=== PATIENT | male | born 1985 | race Caucasian/White ===

== ENCOUNTER 2017-02-05 02:19 | Emergency (ER) | payer SELFPAY ==
--- NOTE | 2017-02-05 03:08 | ED ---
Laceration/Wound HPI - HPI Summary HPI Summary: 32M presents with left forearm laceration today. he cut it at work on piece of metal. no foreign body. bleeding is controlled. no numbness or tingling. has full ROM. tetanus was 3 years ago. minimal pain. is right handed. - History of Current Complaint Stated Complaint: LACERATION Time Seen by Provider: 02/05/17 02:40 Pain Intensity: 0 - Allergy/Home Medications Allergies/Adverse Reactions: Allergies Allergy/AdvReac Type Severity Reaction Status Date / Time No Known Allergies Allergy Verified 02/28/16 17:04 PMH/Surg Hx/FS Hx/Imm Hx Endocrine/Hematology History: Denies: Hx Diabetes, Hx Thyroid Disease Cardiovascular History: Denies: Hx Hypertension Respiratory History: Denies: Hx Asthma, Hx Chronic Obstructive Pulmonary Disease (COPD) GI History: Denies: Hx Ulcer Infectious Disease History: No Infectious Disease History: Denies: Hx Clostridium Difficile, Hx Hepatitis, Hx Human Immunodeficiency Virus (HIV), Hx of Known/Suspected MRSA, Hx Shingles, Hx Tuberculosis, Hx Known/ Suspected VRE, Hx Known/Suspected VRSA, History Other Infectious Disease, Traveled Outside the in Last 30 Days - Family History Known Family History: Positive: Unknown Family History: NON CONTRIBUTORY - Social History Alcohol Use: Occasionally Substance Use Type: Reports: None, Cocaine Substance Use Comment - Amount & Last Used: not currently Smoking Status (MU): Heavy Every Day Tobacco Smoker Type: Cigarettes Amount Used/How Often: 3/4 ppd Review of Systems Negative: Fever Negative: Chest Pain Negative: Shortness Of Breath Positive: Other - laceration left forearm All Other Systems Reviewed And Are Negative: Yes Physical Exam Triage Information Reviewed: Yes Vital Signs On Initial Exam: Initial Vitals Temp Pulse Resp BP Pulse Ox 96.3 F 67 18 132/79 98 02/05/17 02:27 02/05/17 02:27 02/05/17 02:27 02/05/17 02:27 02/05/17 02:27 Vital Signs Reviewed: Yes Appearance: Positive: Well-Appearing Skin: Positive: Warm, Dry, Other - 2cm by 1/2cm of left forearm Head/Face: Positive: Normal Head/Face Inspection Eyes: Positive: Normal, Conjunctiva Clear Respiratory/Lung Sounds: Positive: Clear to Auscultation, Breath Sounds Present Cardiovascular: Positive: Normal, RRR Musculoskeletal: Positive: Strength/ROM Intact - left arm, Other - good pulses Neurological: Positive: Normal Psychiatric: Positive: Normal Procedures - Laceration/Wound Repair 1 Location: Other - left foream Description: Linear Anesthesia: Local, 1.0%, Epi Length, Depth and Shape: 2cm by 1/2cm Irrigated w/ Saline (ccs): 200 Closure: [place] #__ - 3 Diagnostics - Vital Signs Vital Signs Temp Pulse Resp BP Pulse Ox 02/05/17 02:27 96.3 F 67 18 132/79 98 - Laboratory Lab Statement: Any lab studies that have been ordered have been reviewed, and results considered in the medical decision making process. Laceration Repair Course/Dx - Course Course Of Treatment: 32M presents with left forearm laceration today. he cut it at work on piece of metal. no foreign body. bleeding is controlled. no numbness or tingling. has full ROM. tetanus was 3 years ago. minimal pain. on exam has 2cm by 1/2cm laceration of left forearm. cleaned area and placed 3 myra. patient understand and agrees with plan. - Differential Dx Differental Diagnoses: Abrasion, Avulsion, Laceration - Clinical Impression Provider Diagnoses: Laceration of left forearm Discharge - Discharge Plan Condition: Good Disposition: HOME Patient Education Materials: St[facility] (ED) Referrals: No Primary Care Phys,NOPCP [Primary Care Provider] - Additional Instructions: Have myra removed in 10 days at urgent care, ED, or primary Keep clean Take tyenlol or ibuprofen for pain every 6 hours Return to ED if develop any signs of infection or any new or worsening symptoms
[2017-02-05 03:34] VITALS: BP 127/72
== END 2017-02-05 03:32 | disposition home or self-care (01) ==
LOC: ED 02:19
DX: S51.812A Laceration without foreign body of left forearm, initial encounter (principal); W26.9XXA Contact with unspecified sharp object(s), initial encounter; Y93.9 Activity, unspecified; Y92.9 Unspecified place or not applicable; F17.210 Nicotine dependence, cigarettes, uncomplicated
CPT/HCPCS: 12001; 99282

== ENCOUNTER 2017-03-20 11:20 | Emergency (ER) | payer OTHER ==
[2017-03-20 11:35] VITALS: BP 133/81
--- NOTE | 2017-03-20 11:39 | UC ---
Throat Pain/Nasal Damion HPI - HPI Summary HPI Summary: 32 y/o male presents to the urgent care c/o Rt side sore throat with a swollen lymph node that is painful to touch for the past week. Pain with swallowing is 4 /10. He had a low grade fever yesterday. He has taken Tylenol to alleviate symptoms. Pt denies cough, nasal congestion, SOB, chest pain, N/V/D - History of Current Complaint Chief Complaint: UCRespiratory Stated Complaint: SORE THROAT Time Seen by Provider: 03/20/17 11:37 Onset/Duration: Gradual Onset, Lasting Weeks - 1 week, Still Present, Worse Since - yesterday Severity: Moderate Pain Intensity: 4 Pain Scale Used: 0-10 Numeric Cough: None Associated Signs & Symptoms: Positive: Dysphagia, Fever - low grade fever - Epiglottits Risk Factors Epiglottis Risk Factors: Negative - Allergies/Home Medications Allergies/Adverse Reactions: Allergies Allergy/AdvReac Type Severity Reaction Status Date / Time No Known Allergies Allergy Verified 03/20/17 11:34 PMH/Surg Hx/FS Hx/Imm Hx Previously Healthy: Yes - Pt denies PMHX - Surgical History Surgical History: None - Family History Family History: DVT - Social History Occupation: Employed Full-time Lives: With Family Alcohol Use: Rare Substance Use Type: None Substance Use Comment - Amount & Last Used: not currently Smoking Status (MU): Heavy Every Day Tobacco Smoker Type: Cigarettes Amount Used/How Often: 3/4 ppd Length of Time of Smoking/Using Tobacco: since age 19 Have You Smoked in the Last Year: Yes - Immunization History Most Recent Influenza Vaccination: no Review of Systems Constitutional: Fever - low grade fever at home Skin: Negative Eyes: Negative ENT: Sore Throat - RT side swollen and painful lymph node, Ear Ache - RT side ear Respiratory: Negative Cardiovascular: Negative Gastrointestinal: Negative Genitourinary: Negative Motor: Negative Neurovascular: Negative Musculoskeletal: Negative Neurological: Negative Psychological: Negative Is Patient Immunocompromised?: No All Other Systems Reviewed And Are Negative: Yes Physical Exam Triage Information Reviewed: Yes Vital Signs: Initial Vital Signs Temp 96.9 F 03/20/17 11:29 Pulse 79 03/20/17 11:29 Resp 14 03/20/17 11:29 BP 133/81 03/20/17 11:29 Pulse Ox 100 03/20/17 11:29 - Additional Comments VITAL SIGNS: Reviewed. GENERAL: Patient is a well developed and nourished male who is sitting comfortable in the examining table. Patient is not in any acute respiratory distress. HEAD AND FACE: No signs of trauma. No ecchymosis, hematomas or skull depressions. No sinus tenderness. EYES: PERRLA, EOMI x 2, No injected conjunctiva, no nystagmus. No photophobia. EARS: Hearing grossly intact. Ear canals and tympanic membranes are within normal limits. MOUTH: Positive pharynx with erythema, RT side with moderated purulent exudates with blood streaks, mild palatal petechiae. B/L tonsillar enlargement, RT side with purulent moderated exudate. Uvula in midline. NECK: Supple, trachea is midline, Positive anterior cervical lymphadenopathy, no JVD, no carotid bruit, no c-spine tenderness, neck with full ROM. No meningeal signs, no Kernig's or brudzinskis signs. CHEST: Symmetric, no tenderness at palpation LUNGS: Clear to auscultation bilaterally. No wheezing or crackles. CVS: Regular rate and rhythm, S1 and S2 present, no murmurs or gallops appreciated. ABDOMEN: Soft, non-tender. No signs of distention. No rebound no guarding, and no masses palpated. Bowel sounds are normal. EXTREMITIES: FROM in all major joints, no edema, no cyanosis or clubbing. NEURO: Alert and oriented x 3. No acute neurological deficits. Speech is normal and follows commands. SKIN: Dry and warm Throat Pain/Nasal Course/Dx - Course Course Of Treatment: 32 y/o male presents to the urgent care c/o Rt side sore throat with a swollen lymph node that is painful to touch for the past week. Pain with swallowing is 4/10. He had a low grade fever yesterday. He has taken Tylenol to alleviate symptoms. Pt denies cough, nasal congestion, SOB, chest pain, N/V/D. Hx obtained. Rapid strep ordered: result: negative. However first trial was indeterminate. Swab will be sent for throat culture to r/o any other bacteria since exudate is purulent. Pt will be notified of any result for further treatment or stop antibiotic . Dx acute pharyngitis. Rx Amoxicillin PO and Ibuprofen PO for pain and swelling. PT Advised on hand washing to avoid spreading. Also advised to rest, eat well and avoid strenuous exercise. If symptoms do not improve or worsen advised to return to the urgent care or f/u with her PCP for further evaluation and treatment. PT understood and agreed - Differential Dx/Diagnosis Differential Diagnosis/HQI/PQRI: Laryngitis, Mononucleosis, Otitis Media, Peritonsillar Abscess, Pharyngitis, Sinusitis, Tonsillitis, URI Provider Diagnoses: 1- Acute pharyngitis Discharge - Discharge Plan Condition: Stable Disposition: HOME Prescriptions: Amoxicillin PO (*) [Amoxicillin 875 MG (*)] 875 mg PO BID #20 tab Ibuprofen TAB* [Motrin TAB* 800 MG] 800 mg PO Q6H PRN #20 tab PRN Reason: Pain Patient Education Materials: Pharyngitis (ED) Referrals: [facility] [place] [facility] [place]] - If Needed Additional Instructions: 1- Please take the full course of the antibiotic to avoid resistance. 2-Please take ibuprofen PO q6-8hrs prn as instructed after meals to alleviate pain and swelling. Increase fluid intake, eat well, rest and avoid strenuous exercise 3-If symptoms do not improve or worsen please return to the urgent care or f/u with your PCP for further evaluation and treatment. 4- Swab was sent for culture to r/o any other bacteria. You will be notified with the result if you need further treatment.
== END 2017-03-20 12:16 | disposition home or self-care (01) ==
LOC: UCEAST 11:20
DX: J02.9 Acute pharyngitis, unspecified (principal); F17.210 Nicotine dependence, cigarettes, uncomplicated
CPT/HCPCS: 87070; 87651; 99212; G0463